=== PATIENT | female | born 1975 | race Two or more races ===

== ENCOUNTER 2022-10-28 08:23 | Outpatient (CLI) | payer OTHER | END 2022-10-28 08:41 | disposition home or self-care (01) | LOC: LAB 08:23 | PROVIDERS: ATTEND Internal Medicine Cardiovascular Disease | DX: I10 Essential (primary) hypertension (principal); E11.9 Type 2 diabetes mellitus without complications; E03.9 Hypothyroidism, unspecified; E78.2 Mixed hyperlipidemia; Z12.11 Encounter for screening for malignant neoplasm of colon; E85.9 Amyloidosis, unspecified ==

== ENCOUNTER 2022-10-28 10:00 | Outpatient (CLI) | payer OTHER | END 2022-10-28 10:03 | disposition home or self-care (01) | LOC: MAMO-SONO 10:00 | PROVIDERS: ATTEND Internal Medicine Cardiovascular Disease | DX: Z12.31 Encounter for screening mammogram for malignant neoplasm of breast (principal); N60.12 Diffuse cystic mastopathy of left breast ==

== ENCOUNTER 2022-10-28 11:26 | Outpatient (CLI) | payer OTHER | END 2022-10-28 11:28 | disposition home or self-care (01) | LOC: NUCLEAR 11:26 | PROVIDERS: ATTEND Internal Medicine Cardiovascular Disease | DX: M81.0 Age-related osteoporosis without current pathological fracture (principal); E55.9 Vitamin D deficiency, unspecified ==

== ENCOUNTER 2025-01-19 08:47 | Outpatient (CLI) | payer OTHER ==
[2025-01-19 09:33] LABS: BASO % 1.3 % (0.1-1.2); EOS # 0.15 (0.04-0.54); EOS % 3.2 % (0.7-7.0); LYMPH # 1.43 (1.18-3.74); LYMPH % 30.4 % (19.3-53.1); MEAN PLATELET VOLUME 12.00 fl (9.4-12.4); MONO # 0.50 (0.24-0.82); MONO % 10.6 % (4.7-12.5); NEUT # 2.56 (1.56-6.13); NEUT % 54.3 % (34.0-71.1); RED CELL DISTRIBUTION WIDTH 14.4 % (11.6-14.4)
[2025-01-19 11:14] LABS: ALT/SGPT 26.0 U/L (12-78); AST/SGOT 18.0 U/L (15-37); BILIRUBIN TOTAL 0.59 mg/dL (0.3-1.2); BUN CREA RATIO 14.0 (7.0-25.0); CHOL HDL RATIO 3.1 (0-5.0); CREATININE SERUM 0.7 mg/dL (0.55-1.02); GFR 88.22; GLOBULINA 3.4 G/DL (2.4-3.5); GLUCOSE FASTING 91.0 mg/dL (65-100); HDL 77.0 mg/dl (40-60); LDL 148.0 mg/dl (0-130); OSMOLALITY SERUM 284.0 MOSM/KG (275-295); T4 TOTAL 10.32 UG/DL (4.8-13.9); TSH 2.03 uIU/mL (0.358-3.74); VLDL 11.0 (0-39)
[2025-01-19 11:39] LABS: URINE APPEARANCE Clear; URINE BILIRRUBIN Negative (NEGATIVE); URINE BLOOD Negative; URINE COLOR Yellow; URINE GLUCOSE Negative (NEGATIVE); URINE KETONE Negative (NEGATIVE); URINE LEUKOCYTE Negative; URINE NITRATE Negative; URINE PROTEIN Negative (NEGATIVE); URINE UROBILINOGEN 0.2 E.U./dl
[2025-01-19 11:39] LABS: ob POSITIVE (NEGATIVE)
[2025-01-19 11:43] LABS: URINE BACTERIA 23.9 uL (0.0-1933); URINE EPITHELIAL CELLS 4.4 uL (0.0-38.8); URINE RBC 2.0 uL (0.0-20.8); URINE WBC 2.9 uL (0.0-23.2)
[2025-01-19 11:44] LABS: URINE CAST 0.00 uL (0.0-1.40)
[2025-01-19 12:08] LABS: T3 TOTAL 1.53 ng/ml (0.846-2.02); VITAMIN D3 25 HYDROXY 50.05 ng/ml (30-120)
== END 2025-01-19 08:48 | disposition home or self-care (01) ==
LOC: LAB 08:47
PROVIDERS: ATTEND Internal Medicine Cardiovascular Disease
DX: E03.9 Hypothyroidism, unspecified (principal); E78.2 Mixed hyperlipidemia; I10 Essential (primary) hypertension; D64.9 Anemia, unspecified; Z12.11 Encounter for screening for malignant neoplasm of colon; E55.9 Vitamin D deficiency, unspecified; M81.0 Age-related osteoporosis without current pathological fracture; R73.03 Prediabetes

== ENCOUNTER → 2025-01-19 10:02 | Outpatient (CLI) | payer OTHER | END | disposition home or self-care (01) | LOC: NUCLEAR 09:00 | PROVIDERS: ATTEND Internal Medicine Cardiovascular Disease | DX: I87.2 Venous insufficiency (chronic) (peripheral) (principal); M81.0 Age-related osteoporosis without current pathological fracture ==